=== PATIENT | male | born 1965 | race African-American/Black ===

== ENCOUNTER → 2019-11-07 | Outpatient (CLI) | payer OTHER ==
[2015-09-22 14:26] VITALS: BP 148/87
[~2019-11-07] MED LIST: ALPR1TAB6 PO; ATEN100T PO; CLON1TAB11 PO; FURO20TA3 PO; GABA800T5 PO; HYDR1POW19 MC; INSU100V13 SQ; INSU100V31 SQ; LOSA1TAB22 PO; LURA80TA PO; Loperamide Hcl PO; MAG30ORA2 PO; OMEP20CA16 PO; RISP2TAB PO
--- NOTE | 2019-11-07 12:20 | RAD ---
EXAMINATION: VENOUS LOWER EXTREMITY LEFT HISTORY: Left lower extremity pain and swelling. COMPARISON/CORRELATION: None FINDINGS: Left lower extremity duplex venous ultrasound exam was performed. Grayscale, color Doppler, and spectral Doppler imaging was performed. Compression and augmentation was performed. The left common femoral vein, superficial femoral vein, popliteal vein, and saphenofemoral junction are normal with no evidence of deep venous thrombus. Visualized left calf veins are unremarkable. Normal compressibility and augmentation is evident. Edema of the soft tissues at the left mid calf region posteriorly is present. IMPRESSION: Soft tissue edema at the left mid calf region. No evidence of deep venous thrombus involving the left lower extremity. Electronically signed by: Giovany Ovalle MD (11/07/2019 12:17 PM) [id number]
== END | disposition home or self-care (01) ==
LOC: US 11:41
PROVIDERS: ATTEND Family Medicine
DX: R60.0 Localized edema (principal); M79.89 Other specified soft tissue disorders
CPT/HCPCS: 93971

== ENCOUNTER 2020-05-26 13:35 | Emergency (ER) | payer OTHER ==
[~2020-05-26] VITALS: Ht 175.3 cm; Wt 136.0 kg
[2020-05-26 14:04] VITALS: BP 180/101
--- NOTE | 2020-05-26 14:19 | PHYS DOC ---
Past History Past Medical History: Anxiety, Asthma, COPD, Diabetes, GERD, Hypertension Past Surgical History: No Surgical History Smoking: Cigar Alcohol Use: None Drug Use: None Adult General Chief Complaint Chief Complaint: RECTAL BLEED HPI HPI Patient is a 54 year old male who presents with complaints of rectal pain that started approximately 1 week ago. Patient states that at onset he noticed pain when he wiped and also noticed some bright red blood on the toilet paper after he wiped but did not see any blood in his stool or in the stool. Patient states that it progressively became worse and then 4 days ago and started noticing blood in the stool along with blood clots. Patient states that he has some low abdominal pressure just prior to having his stools and has extreme rectal pain every time he has a bowel movement. Patient rates his pain at a 10/10 on a 1-10 pain scale. Patient denies rectal sex, patient denies anything going into his rectum. Patient reports having rectal polyps removed by Dr. MCKNIGHT at related to colon cancer. Patient denies being on any current cancer regimens, chemotherapies, radiation therapies. Patient states that he has a bowel movement every day however states that intermittently he has diarrhea and also intermittently he has very hard constipated type stools however he does not notice a pattern to this. Patient denies any fever or chills, any visual changes, nasal congestion cough or shortness of breath. Patient denies any chest pain or edema. Patient denies any problems urinating, patient denies any penile discharge, patient denies STI concerns. Patient denies back pain, joint pains, skin rashes, headaches focal weaknesses or sensory changes. Patient denies any increased urination or increased thirst even though he reports he is both a type I and a type II diabetic. Patient denies any swelling of his glands, any recent depressions or anxieties, patient denies homicidal or suicidal ideations. Patient denies having the Covid virus, patient denies any Covid 19 virus symptoms, patient does not wish to be tested today. Review of Systems Review of Systems Constitutional: Denies fever or chills Eyes: Denies change in visual acuity, redness, or eye pain HENT: Denies nasal congestion or sore throat Respiratory: Denies cough or shortness of breath Cardiovascular: No additional information not addressed in HPI GI: Denies nausea, vomiting, complains of rectal pain, diarrhea, constipation, blood in his stools, passing blood clots during bowel movements that started approximately 1 week ago and has progressively become worse. : Denies dysuria or hematuria Musculoskeletal: Denies back pain or joint pain Integument: Denies rash or skin lesions Neurologic: Denies headache, focal weakness or sensory changes Endocrine: Denies polyuria or polydipsia, reports being both a type I and a type II diabetic. Psychiatric: Patient denies homicidal or suicidal ideation, patient denies recent depressions or anxieties. All other systems were reviewed and found to be within normal limits, except as documented in this note. Family History Family History Patient states that there is diabetes and heart disease on both his mother and father side of the family. Current Medications Current Medications Patient reports taking atenolol 100 mg daily, hydrochlorothiazide 25 mg daily, insulin daily, omeprazole 20 mg daily, risperidone 2 mg daily, gabapentin 800 mg 3 times daily, Lasix 20 mg daily, Latuda 80 mg nightly, Ativan 1 mg as needed, clonazepam 1 mg every morning. Allergies Allergies Allergies Coded Allergies Type Severity Reaction Last Updated Verified egg Allergy Intermediate 09/21/14 Yes Physical Exam Physical Exam Constitutional: Well developed, well nourished, no acute distress, non-toxic appearance. HENT: Normocephalic, atraumatic, bilateral external ears normal, oropharynx moist, no oral exudates, nose normal. Eyes: PERRLA, EOMI, conjunctiva normal, no discharge. Neck: Normal range of motion, no tenderness, supple, no stridor. Cardiovascular:Heart rate regular rhythm, no murmur for auscultation Lungs & Thorax: Bilateral breath sounds clear to auscultation all lung [place] Abdomen: Bowel sounds normal all 4 quadrants auscultation, soft, no tenderness, no masses, no pulsatile masses. Visual rectal exam did not show any hemorrh oids, there was no visual blood, there were no lesions noted there was no rashes noted on or around rectum, rectal exam for occult blood did not show any visual blood on stool, occult blood test card was sent to lab. Patient stated rectal exam was extremely painful. Skin: Warm, dry, no erythema, no rash. Back: No tenderness, no CVA tenderness. Extremities: No tenderness, no cyanosis, no clubbing, ROM intact, no edema. Neurologic: Alert and oriented X 3, normal motor function, normal sensory function, no focal deficits noted. Psychologic: Affect normal, judgement normal, mood normal. Current Patient Data Vital Signs Vital Signs Date Time Temp Pulse Resp B/P (MAP) Pulse Ox O2 Delivery O2 Flow Rate FiO2 05/26/20 14:02 92 20 180/101 (127) 95 Room Air Lab Results Laboratory Tests Test 05/26/20 15:32 05/26/20 16:03 White Blood Count 7.2 x10^3/uL Red Blood Count 5.64 x10^6/uL Hemoglobin 14.7 g/dL Hematocrit 45.5 % Mean Corpuscular Volume 81 fL Mean Corpuscular Hemoglobin 26 pg Mean Corpuscular Hemoglobin Concent 32 g/dL Red Cell Distribution Width 13.9 % Platelet Count 217 x10^3/uL Neutrophils (%) (Auto) 72 % Lymphocytes (%) (Auto) 20 % Monocytes (%) (Auto) 7 % Eosinophils (%) (Auto) 1 % Basophils (%) (Auto) 0 % Neutrophils # (Auto) 5.1 x10^3uL Lymphocytes # (Auto) 1.4 x10^3/uL Monocytes # (Auto) 0.5 x10^3/uL Eosinophils # (Auto) 0.1 x10^3/uL Basophils # (Auto) 0.0 x10^3/uL Sodium Level 137 mmol/L Potassium Level 4.2 mmol/L Chloride Level 97 mmol/L Carbon Dioxide Level 33 mmol/L Anion Gap 7 Blood Urea Nitrogen 27 mg/dL Creatinine 1.4 mg/dL Estimated GFR (Cockcroft-Gault) 63.7 BUN/Creatinine Ratio 19 Glucose Level 336 mg/dL Calcium Level 9.8 mg/dL Magnesium Level 2.3 mg/dL Total Bilirubin 0.2 mg/dL Aspartate Amino Transf (AST/SGOT) 18 U/L Alanine Aminotransferase (ALT/SGPT) 34 U/L Alkaline Phosphatase 57 U/L Troponin I Quantitative < 0.017 ng/mL Total Protein 7.2 g/dL Albumin 3.7 g/dL Albumin/Globulin Ratio 1.1 Stool Occult Blood Positive Current Medications Medications (Trade) Dose Ordered Sig/Chago Route PRN Reason Start Time Stop Time Status Last Admin Dose Admin Iohexol (Omnipaque 300 Mg/ml) 75 ml 1X ONCE IV 05/26/20 14:45 05/26/20 14:50 DC Fentanyl Citrate (Fentanyl 2ml Vial) 50 mcg 1X ONCE IVP 05/26/20 16:15 05/26/20 16:16 DC 05/26/20 16:33 Laboratory Tests Test 05/26/20 15:32 05/26/20 16:03 White Blood Count 7.2 x10^3/uL Red Blood Count 5.64 x10^6/uL Hemoglobin 14.7 g/dL Hematocrit 45.5 % Mean Corpuscular Volume 81 fL Mean Corpuscular Hemoglobin 26 pg Mean Corpuscular Hemoglobin Concent 32 g/dL Red Cell Distribution Width 13.9 % Platelet Count 217 x10^3/uL Neutrophils (%) (Auto) 72 % Lymphocytes (%) (Auto) 20 % Monocytes (%) (Auto) 7 % Eosinophils (%) (Auto) 1 % Basophils (%) (Auto) 0 % Neutrophils # (Auto) 5.1 x10^3uL Lymphocytes # (Auto) 1.4 x10^3/uL Monocytes # (Auto) 0.5 x10^3/uL Eosinophils # (Auto) 0.1 x10^3/uL Basophils # (Auto) 0.0 x10^3/uL Sodium Level 137 mmol/L Potassium Level 4.2 mmol/L Chloride Level 97 mmol/L Carbon Dioxide Level 33 mmol/L Anion Gap 7 Blood Urea Nitrogen 27 mg/dL Creatinine 1.4 mg/dL Estimated GFR (Cockcroft-Gault) 63.7 BUN/Creatinine Ratio 19 Glucose Level 336 mg/dL Calcium Level 9.8 mg/dL Magnesium Level 2.3 mg/dL Total Bilirubin 0.2 mg/dL Aspartate Amino Transf (AST/SGOT) 18 U/L Alanine Aminotransferase (ALT/SGPT) 34 U/L Alkaline Phosphatase 57 U/L Troponin I Quantitative < 0.017 ng/mL Total Protein 7.2 g/dL Albumin 3.7 g/dL Albumin/Globulin Ratio 1.1 Stool Occult Blood Positive Current Medications Medications (Trade) Dose Ordered Sig/Chago Route PRN Reason Start Time Stop Time Status Last Admin Dose Admin Iohexol (Omnipaque 300 Mg/ml) 75 ml 1X ONCE IV 05/26/20 14:45 05/26/20 14:50 DC Fentanyl Citrate (Fentanyl 2ml Vial) 50 mcg 1X ONCE IVP 05/26/20 16:15 11/8/20 16:16 DC 05/26/20 16:33 EKG EKG EKG performed at 1451 by ED nursing staff showed a heart rate of 92 bpm normal sinus rhythm without ectopy, [place] interval 0.148, QTc interval 0.455, no acute STEMI, no coronary syndrome appreciated EKG interpreted by ED attending Dr. Marquez. Radiology/Procedures Radiology/Procedures [] Heart Score Risk Factors: Risk Factors: DM, Current or recent (<one month) smoker, HTN, HLP, family history of CAD, obesity. Risk Scores: Risk Factors: DM, Current or recent (<one month) smoker, HTN, HLP, family history of CAD, obesity. Course & Med Decision Making Course & Med Decision Making Pertinent Labs and Imaging studies reviewed. (See chart for details) This 54-year-old male patient with vital signs blood pressure 184/101, heart rate 92, O2 sat 95% on room air, oral temp 98.2, respirations 18, seen here in the ER today for rectal pain and rectal bleeding with blood in the stool. Patient reported a history of cardiac stents 2 years ago, also reports a history of COPD, rectal polyps with cancer that was removed per surgery greater than 20 years ago, a left knee surgery approximately 10 years ago, and a double back surgery approximately 10 years ago, also reports a history of being a type I and a type II diabetic. Related to the patient's history of present illness and the patient's past medical history a work-up was started, lab work was essentially unremarkable except for his stool for occult blood was positive, he was not anemic, there was no infectious process noted per CBC. His electrolytes were equivocal. When the triage technician arrived to take him for his abdominal CAT scan further evaluate the patient's complaints of bloody stool, the patient elected to leave the emergency department AGAINST MEDICAL ADVICE. I discussed the risk versus benefits of leaving AGAINST MEDICAL ADVICE. Urged the patient to stay and have his medical examination completed. It is of my opinion that the patient is of sound mind and body, alert and oriented x4, and is able to make his own informed medical decisions. The patient's IV was removed by ED nursing staff, patient discharge instructions including AMA form was reviewed with patient by me and ED nursing staff, patient elected to leave the emergency department after receiving verbal instructions, the patient continued to refuse completion of his medical exam, the patient refused his CT scan of the abdomen, the CT scan of the abdomen was not performed today, patient left the ED without incident AGAINST MEDICAL ADVICE. Dragon Disclaimer Dragon Disclaimer This electronic medical record was generated, in whole or in part, using a voice recognition dictation system. Departure Departure: Impression: Primary Impression: Left against medical advice Additional Impression: Rectal pain Disposition: 07 AMA/ELOPED/LWBS Condition: STABLE Referrals: ZULMA KATZ MD (PCP) Patient Instructions: Discharge Against Medical Advice Additional Instructions: You came to the emergency department today for evaluation of your rectal pain and rectal bleeding. You have decided to leave the emergency department prior to my completion of your medical evaluation. You are leaving AGAINST MEDICAL ADVICE. Please return to the emergency department for worsening symptoms or further concerns. Problem Qualifiers DANE MARCIAL APRN May 26, 2020 14:19
[2020-05-26] MEDS ORDERED: IOHEXOL 300 MG/ML 75 ML VIAL. IV ONE (14:45)
--- NOTE | 2020-05-26 14:57 | EKG ---
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
[2020-05-26 16:19] LABS: BASO % 0 % (0-3); EOS # 0.1 x10^3/uL (0.0-0.7); EOS % 1 % (0-3); HEMATOCRIT 45.5 % (39.0-53.0); HEMOGLOBIN 14.7 g/dL (13.0-17.5); LYMPH # 1.4 x10^3/uL (1.0-4.8); LYMPH % 20 % (24-48); MEAN CORPUSCULAR HEMOGLOBIN 26 pg (25-35); MEAN CORPUSCULAR HGB CONC 32 g/dL (31-37); MEAN CORPUSCULAR VOLUME 81 fL (79-100); MONO # 0.5 x10^3/uL (0.0-1.1); MONO % 7 % (0-9); NEUT # 5.1 x10^3uL (1.8-7.7); NEUT % 72 % (31-73); PLATELET COUNT 217 x10^3/uL (140-400); RED BLOOD COUNT 5.64 x10^6/uL (4.30-5.70); RED CELL DISTRIBUTION WIDTH 13.9 % (11.5-14.5); WHITE BLOOD COUNT 7.2 x10^3/uL (4.0-11.0)
[2020-05-26 16:20] LABS: CALCIUM 9.8 mg/dL (8.5-10.1); CREATININE 1.4 mg/dL (0.7-1.3); GFR 63.7; POTASSIUM 4.2 mmol/L (3.5-5.1)
[2020-05-26 16:26] LABS: ALBUMIN 3.7 g/dL (3.4-5.0); ALBUMIN/GLOBULIN RATIO 1.1 (1.0-1.7); TOTAL BILIRUBIN 0.2 mg/dL (0.2-1.0); TOTAL PROTEIN 7.2 g/dL (6.4-8.2)
[2020-05-26 16:32] LABS: FECAL OB PT POSITIVE (NEG)
== END 2020-05-26 16:40 | disposition left against medical advice (07) ==
LOC: ER 13:35
DX: K62.89 Other specified diseases of anus and rectum (principal); K92.1 Melena; R19.7 Diarrhea, unspecified; K59.00 Constipation, unspecified; F41.9 Anxiety disorder, unspecified; J44.9 Chronic obstructive pulmonary disease, unspecified; E11.9 Type 2 diabetes mellitus without complications; K21.9 Gastro-esophageal reflux disease without esophagitis; I10 Essential (primary) hypertension; F17.210 Nicotine dependence, cigarettes, uncomplicated; Z91.012 Allergy to eggs
CPT/HCPCS: 36415; 80053; 82274; 83735; 84484; 85025; 93005; 96374; 99284; J3010

== ENCOUNTER 2020-10-08 17:20 | Observation (INO) | payer OTHER ==
[~2020-10-08] VITALS: Ht 177.8 cm; Wt 143.9 kg
[2020-10-08] MEDS ORDERED: IV NORMAL SALINE 1,000ML 1,000 ML IV SCH (17:30)
[2020-10-08] MEDS ORDERED: ASPIRIN CHEWABLE 81 MG TABLET. PO ONE (17:30)
--- NOTE | 2020-10-08 17:54 | RAD ---
INDICATION: Reason: CHEST PAIN / Spl. Instructions: / History: COMPARISON: September 2014 FINDINGS: Single view of chest obtained. Hypoexpanded exam with prominence of the cardiac silhouette. Limited assessment of left lung base sec ondary to overlying cardiac silhouette obscuring but no definite consolidation elsewhere in the lungs . Degenerative changes the spine. IMPRESSION: * Hypoexpanded exam without definite focal consolidation. Electronically signed by: Oumar Saini MD (10/08/2020 5:52 PM) [id number]
--- NOTE | 2020-10-08 17:59 | PHYS DOC ---
Past History Past Medical History: Anxiety, Asthma, COPD, Diabetes, GERD, High Cholesterol, Heart Disease, Hypertension (BENY ELENA MD) Past Surgical History: No Surgical History Additional Past Surgical Histo: 2 stents (BENY ELENA MD) Smoking: Cigar Alcohol Use: None Drug Use: None (BENY ELENA MD) Adult General Chief Complaint Chief Complaint: CHEST PAIN [facility] HPI Patient is a 54-year-old male with a significant past medical history including prior MIs and hospitalization for "coma" 10 months ago now presents emergency department complaint of new onset of chest pain. Patient states his chest pain started of substernal anterior chest pain that started spontaneously approxi-1 week ago and has been some increase in severity. Patient came today because it has been having any worse. Patient has not been taking any medication for this problem. Denies any fever, chills, nausea vomiting, dizziness or lightheadedness. (BENY ELENA MD) Review of Systems Review of Systems Constitutional: Denies fever or chills [] Eyes: Denies change in visual acuity, redness, or eye pain [] HENT: Denies nasal congestion or sore throat [] Respiratory: Denies cough or shortness of breath [] Cardiovascular: No additional information not addressed in HPI [] GI: Denies abdominal pain, nausea, vomiting, bloody stools or diarrhea [] : Denies dysuria or hematuria [] Musculoskeletal: Denies back pain or joint pain [] Integument: Denies rash or skin lesions [] Neurologic: Denies headache, focal weakness or sensory changes [] Endocrine: Denies polyuria or polydipsia [] All other systems were reviewed and found to be within normal limits, except as documented in this note. (BENY ELENA MD) Current Medications Current Medications Current Medications Medications (Trade) Dose Ordered Sig/Chago Start Time Stop Time Status Last Admin Dose Admin Aspirin (Aspirin Chewable) 324 mg 1X ONCE 10/08/20 17:30 10/08/20 17:36 DC Sodium Chloride 1,000 ml @ 1,000 mls/hr Q1H 10/08/20 17:30 10/08/20 18:29 (BENY ELENA MD) Allergies Allergies Allergies Coded Allergies Type Severity Reaction Last Updated Verified egg Allergy Intermediate 09/21/14 Yes (BENY ELENA MD) Physical Exam Physical Exam Constitutional: Well developed, well nourished, no acute distress, non-toxic appearance. [] HENT: Normocephalic, atraumatic, bilateral external ears normal, oropharynx moist, no oral exudates, nose normal. [] Eyes: PERRLA, EOMI, conjunctiva normal, no discharge. [] Neck: Normal range of motion, no tenderness, supple, no stridor. [] Cardiovascular:Heart rate regular rhythm, no murmur [] Lungs & Thorax: Bilateral breath sounds clear to auscultation left anterior chest wall tenderness Abdomen: Bowel sounds normal, soft, no tenderness, no masses, no pulsatile masses. [] Skin: Warm, dry, no erythema, no rash. [] Back: No tenderness, no CVA tenderness. [] Extremities: No tenderness, no cyanosis, no clubbing, ROM intact, no edema. [] Neurologic: Alert and oriented X 3, normal motor function, normal sensory function, no focal deficits noted. [] Psychologic: Affect normal, judgement normal, mood normal. [] (BENY ELENA MD) Current Patient Data Vital Signs Vital Signs Date Time Temp Pulse Resp B/P (MAP) Pulse Ox O2 Delivery O2 Flow Rate FiO2 10/08/20 17:30 98.4 97 26 161/93 (115) 94 (BENY ELENA MD) EKG EKG [] (BENY ELENA MD) Radiology/Procedures Radiology/Procedures [] (BENY ELENA MD) Heart Score C/O Chest Pain: No Risk Factors: Risk Factors: DM, Current or recent (<one month) smoker, HTN, HLP, family history of CAD, obesity. Risk Scores: Risk Factors: DM, Current or recent (<one month) smoker, HTN, HLP, family history of CAD, obesity. (BENY ELENA MD) Course & Med Decision Making Course & Med Decision Making Pertinent Labs and Imaging studies reviewed. (See chart for details) [age] male presented to emergency for new onset of left anterior chest pain dyspnea on for about 1 week. Patient is high risk patient has a history of MIs and there is some concern for drug-seeking behavior and overdose in the past. This time will obtain a full ACS work-up and reevaluate. 17:58 - patient care assigned to Dr. Segundo (BENY ELENA MD) Course & Med Decision Making I assumed care of patient after comprehensive signout by off going physician I personally evaluated patient and repeated certain aspects of history and physical exam. I reviewed entirety of previously ordered diagnostic work-up at length. Patient has had 60 pound weight gain in the past 2 months. Worse paroxysmal dyspnea, exertional chest pain, and LE edema I discussed and disclosed all findings at length with patient, patient hyperglycemic and is a known uncontrolled type II diabetic. Story concerning for acute exacerbation of heart failure and a high risk patient complaining of chest pain. I contacted Dr. Luz, hospitalist at [facility] and discussed case at length. He agreed need for admission for continued diuresis, cardiac observation and intervention/education regarding patient's uncontrolled diabetes I discussed proposed plan of care with patient and he was amenable to plan of care that included admission to hospital as stated. All questions and concerns addressed prior to ER transport to [facility] for admission (LUCÍA SEGUNDO DO) Dragon Disclaimer Dragon Disclaimer This electronic medical record was generated, in whole or in part, using a voice recognition dictation system. (BENY LEENA MD) Departure Departure: Impression: Primary Impression: Acute exacerbation of CHF (congestive heart failure) Additional Impressions: Chest pain, rule out acute myocardial infarction Type 2 diabetes mellitus, uncontrolled Disposition: 09 ADMITTED INPT THIS HOSP Admitting Physician: Roman Luz (LUCÍA SEGUNDO DO) Condition: STABLE Referrals: ZULMA KATZ MD (PCP) Problem Qualifiers BENY ELENA MD Oct 08, 2020 17:59 LUCÍA SEGUNDO DO Oct 09, 2020 05:01
[2020-10-08 18:09] LABS: BASO % 1 % (0-3); CALCIUM 9.2 mg/dL (8.5-10.1); CREATININE 1.7 mg/dL (0.7-1.3); EOS # 0.1 x10^3/uL (0.0-0.7); EOS % 2 % (0-3); GFR 50.9; HEMATOCRIT 46.3 % (39.0-53.0); HEMOGLOBIN 15.1 g/dL (13.0-17.5); LYMPH # 1.3 x10^3/uL (1.0-4.8); LYMPH % 18 % (24-48); MEAN CORPUSCULAR HEMOGLOBIN 26 pg (25-35); MEAN CORPUSCULAR HGB CONC 33 g/dL (31-37); MEAN CORPUSCULAR VOLUME 80 fL (79-100); MONO # 0.5 x10^3/uL (0.0-1.1); MONO % 7 % (0-9); NEUT # 5.3 x10^3uL (1.8-7.7); NEUT % 72 % (31-73); PLATELET COUNT 218 x10^3/uL (140-400); POTASSIUM 4.3 mmol/L (3.5-5.1); RED BLOOD COUNT 5.78 x10^6/uL (4.30-5.70); RED CELL DISTRIBUTION WIDTH 14.8 % (11.5-14.5); WHITE BLOOD COUNT 7.3 x10^3/uL (4.0-11.0)
[2020-10-08] MEDS ORDERED: FUROSEMIDE 100 MG/10 ML VIAL IVP ONE (18:15)
[2020-10-08 18:21] LABS: ALBUMIN 3.7 g/dL (3.4-5.0); TOTAL BILIRUBIN 0.2 mg/dL (0.2-1.0); TOTAL PROTEIN 7.2 g/dL (6.4-8.2)
[2020-10-08 18:23] LABS: DIRECT BILIRUBIN 0.1 mg/dL (0.0-0.2)
[2020-10-08] MEDS ORDERED: MORPHINE SULFATE 4 MG/ML DISP.SYRIN. ONE (18:25)
[2020-10-08] MEDS ORDERED: MORPHINE SULFATE 4 MG/ML DISP.SYRIN. IV ONE (18:30)
[2020-10-08] MEDS ORDERED: ALBUTEROL SULFATE 2.5 MG/3 ML NEBU. NEB ONE (19:45)
[2020-10-08 21:14] VITALS: BP 139/90
[2020-10-08] MEDS ORDERED: ATORVASTATIN CA80 MG PO (21:43)
[2020-10-08] MEDS ORDERED: FLUT1AER IH (21:43)
[2020-10-08] MEDS ORDERED: FURO80TA3 PO (21:43)
[2020-10-08] MEDS ORDERED: LOSA50TA86 PO (21:43)
[2020-10-08] MEDS ORDERED: OLAN5TAB9 PO (21:43)
[2020-10-08] MEDS ORDERED: VENL75CA6 PO (21:43)
[2020-10-08] MEDS ORDERED: POTA20TA4 PO (21:43)
[2020-10-08] MEDS ORDERED: CLOP75TA PO (21:43)
[2020-10-08] MEDS ORDERED: HYDR-2155 PO (21:43)
[2020-10-08] MEDS ORDERED: FLUT16SP21 NS (21:43)
[2020-10-08 23:03] VITALS: BP 134/85
[2020-10-09] MEDS ORDERED: ACETAMINOPHEN 325 MG TABLET PO ONE (05:30)
[2020-10-09 05:47] VITALS: BP 156/92
[2020-10-09] MEDS ORDERED: HYDROcodone/APAP 5/325MG 1 TAB TABLET PO PRN (07:30)
[2020-10-09] MEDS ORDERED: ALPRAZolam 0.5 MG TABLET PO PRN (07:45)
--- NOTE | 2020-10-09 08:34 | PDOC2 ---
CARDIAC CONSULT DATE OF CONSULT DOS: DATE: 10/09/20 TIME: 08:30 REASON FOR CONSULT Reason for Consult Chest pain REFERRING PHYSICIAN Referring Physician Dr. Desir SOURCE Source: Chart review, Patient HPI History of Present Illness This is a 54 yo male who presented secondary to chest pain. Patient reports pain has been present for the last week. Located in his central chest. Is worse with certain movements, coughing, and deep breathing. Central chest is also tender upon palpitation. Over the last couple of days, patient has been more short of breath with exertion. Has had to stop and take a breath with his routine morning walks. No dizziness, diaphoresis, palpitations, or nausea/vomiting. Given shortness of breath and chest pain, patient decided to come to the ED for further evaluation and treatment. Has a history of CAD s/p PCI/stents 3 years ago. Follow with [facility]iology, Dr. Daniels. Was scheduled for routine 1 year visit today. Reports experiencing similar pain last year and Dr. Daniels felt pain was MSK in origin. Had cardiac cath last year without intervention. Reports compliance with medications. Reports blood sugar is "always elevated". S/p IV Lasix in ED and reports feeling much better this morning. PAST MEDICAL HISTORY Cardiovascular: CAD, CHF, HTN Pulmonary: COPD, Other (TERESA) Heme/Onc: Cancer (colorectal ) Psych: Anxiety, Bipolar, Depression Endocrine: Diabetes PAST SURGICAL HISTORY Past Surgical History: Other (back surgery, PCI/stents ) FAMILY HISTORY Family History: Diabetes, Hypertension SOCIAL HISTORY Smoke: Quit (smoke cigars ) ALCOHOL: none Drugs: None Lives: Alone CURRENT MEDICATIONS Current Medications Current Medications Aspirin (Aspirin Chewable) 324 mg 1X ONCE PO Last administered on 10/08/20at 18:06; Start 10/08/20 at 17:30; Stop 10/08/20 at 17:36; Status DC Sodium Chloride 1,000 ml @ 1,000 mls/hr Q1H IV ; Start 10/08/20 at 17:30; Stop 10/08/20 at 18:10; Status DC Furosemide (Lasix) 80 mg 1X ONCE IVP Last administered on 10/08/20at 18:32; Start 10/08/20 at 18:15; Stop 10/08/20 at 18:16; Status DC Morphine Sulfate (Morphine 4mg Syringe) 4 mg 1X ONCE IV Last administered on 10/08/20at 18:30; Start 10/08/20 at 18:30; Stop 10/08/20 at 18:31; Status DC Morphine Sulfate (Morphine 4mg Syringe) 4 mg STK-MED ONCE .ROUTE ; Start 10/08/20 at 18:25; Stop 10/08/20 at 18:26; Status DC Albuterol Sulfate (Ventolin) 2.5 mg 1X ONCE NEB Last administered on 10/08/20at 19:45; Start 10/08/20 at 19:45; Stop 10/08/20 at 19:51; Status DC Acetaminophen (Tylenol) 650 mg PRN Q6HRS ONCE PO Last administered on 10/09/20at 05:30; Start 10/09/20 at 05:30; Stop 10/09/20 at 05:46; Status DC Clopidogrel Bisulfate (Plavix) 75 mg DAILY PO ; Start 10/09/20 at 09:00 Fluticasone Propionate (Flonase) 2 spray BID NS ; Start 10/09/20 at 09:00 Furosemide (Lasix) 80 mg DAILY PO ; Start 10/09/20 at 09:00 Acetaminophen/ Hydrocodone Bitart (Lortab 5/325) 1 tab PRN BID PRN PO PAIN; Start 10/09/20 at 07:30 Losartan Potassium (Cozaar) 100 mg DAILY PO ; Start 10/09/20 at 09:00 Olanzapine (ZyPREXA) 15 mg QHS PO ; Start 10/09/20 at 21:00 Potassium Chloride (Klor-Con) 60 meq DAILY PO ; Start 10/09/20 at 09:00 Alprazolam (Xanax) 1 mg PRN TID PRN PO ANXIETY / AGITATION; Start 10/09/20 at 07:45 Atorvastatin Calcium (Lipitor) 80 mg QHS PO ; Start 10/09/20 at 21:00 Non-Formulary Medication (Fluticasone/ Vilanterol (Breo Ellipta 100-25 Mcg Inh)) 1 puff DAILY IH ; Start 10/09/20 at 09:00; Stop 10/09/20 at 08:11; Status DC Gabapentin (Neurontin) 800 mg BID PO ; Start 10/09/20 at 09:00 Insulin Human Lispro (HumaLOG) 63 units TIDAC SQ ; Start 10/09/20 at 11:30 Insulin Glargine (Lantus Syringe) 90 unit BID SQ ; Start 10/09/20 at 09:00 Pantoprazole Sodium (Protonix) 40 mg DAILYAC PO ; Start 10/10/20 at 08:00 Venlafaxine HCl (Effexor Xr) 75 mg DAILY PO ; Start 10/09/20 at 09:00 Albuterol Sulfate (Ventolin) 2.5 mg RTQID NEB ; Start 10/09/20 at 12:00 Budesonide (Pulmicort) 0.5 mg RTBID NEB ; Start 10/09/20 at 20:00 Active Scripts Active Reported Olanzapine 5 Mg Tablet 15 Mg PO QHS Venlafaxine Hcl Er (Venlafaxine Hcl) 75 Mg Cap.er.24h 75 Mg PO DAILY Hydrocodone-Apap 5-325 (Hydrocodone Bit/Acetaminophen) 1 Each Tablet 1 Tab PO PRN BID PRN Fluticasone Propionate Nasal [place] (Fluticasone Propionate) 16 Gm [place].susp 2 [place] NS BID Clopidogrel (Clopidogrel Bisulfate) 75 Mg Tablet 75 Mg PO DAILY Atorvastatin Calcium 80 Mg Tablet 80 Mg PO QHS Breo Ellipta 100-25 Mcg Inh (Fluticasone/Vilanterol) 1 Each Aer.pow.ba 1 Puff IH DAILY Losartan Potassium (Losartan Potassium) 50 Mg Tablet 100 Mg PO DAILY Potassium Chloride (Potassium Chloride) 20 Meq Tablet.er 60 Meq PO DAILY Furosemide 80 Mg Tablet 80 Mg PO DAILY Alprazolam 1 Mg Tablet 1 Mg PO PRN TID PRN Gabapentin 800 Mg Tablet 800 Mg PO BID Omeprazole 20 Mg Capsule.dr 20 Mg PO DAILY Levemir (Insulin Detemir) 100 Unit/1 Ml Vial 90 Unit SQ BIDWMEALS Novolog (Insulin Aspart) 100 Unit/1 Ml Vial 63 Unit SQ TIDAC ALLERGIES Allergies: Coded Allergies: egg (Verified Allergy, Intermediate, 09/21/14) ROS Review of Systems 14 point ROS conducted with pertinent positives noted above in hPI PHYSICAL EXAM General: Alert, Oriented X3, Cooperative, No acute distress HEENT: Atraumatic Lungs: Clear to auscultation, Other (central chest tenderness upon palpation ) Heart: Regular rate Abdomen: Soft, Other (obese ) Skin: No rashes, No breakdown, No significant lesion (trace bilateral LE edema ) Neuro: Normal speech, Sensation intact Psych/Mental Status: Mental status NL, Mood NL MUSCULOSKELETAL: Osteoarthritic changes both hands VITALS Vital Signs Vital Signs Date Time Temp Pulse Resp B/P (MAP) Pulse Ox O2 Delivery O2 Flow Rate FiO2 10/09/20 05:47 98.2 91 20 156/92 (113) 92 Nasal Cannula 2.0 LABS LABS Laboratory Tests Test 10/08/20 17:30 10/08/20 20:35 10/08/20 22:38 10/08/20 23:40 White Blood Count 7.3 x10^3/uL (4.0-11.0) Red Blood Count 5.78 x10^6/uL (4.30-5.70) Hemoglobin 15.1 g/dL (13.0-17.5) Hematocrit 46.3 % (39.0-53.0) Mean Corpuscular Volume 80 fL (79-100) Mean Corpuscular Hemoglobin 26 pg (25-35) Mean Corpuscular Hemoglobin Concent 33 g/dL (31-37) Red Cell Distribution Width 14.8 % (11.5-14.5) Platelet Count 218 x10^3/uL (140-400) Neutrophils (%) (Auto) 72 % (31-73) Lymphocytes (%) (Auto) 18 % (24-48) Monocytes (%) (Auto) 7 % (0-9) Eosinophils (%) (Auto) 2 % (0-3) Basophils (%) (Auto) 1 % (0-3) Neutrophils # (Auto) 5.3 x10^3uL (1.8-7.7) Lymphocytes # (Auto) 1.3 x10^3/uL (1.0-4.8) Monocytes # (Auto) 0.5 x10^3/uL (0.0-1.1) Eosinophils # (Auto) 0.1 x10^3/uL (0.0-0.7) Basophils # (Auto) 0.0 x10^3/uL (0.0-0.2) Sodium Level 138 mmol/L (136-145) Potassium Level 4.3 mmol/L (3.5-5.1) Chloride Level 99 mmol/L (98-107) Carbon Dioxide Level 33 mmol/L (21-32) Anion Gap 6 (6-14) Blood Urea Nitrogen 27 mg/dL (8-26) Creatinine 1.7 mg/dL (0.7-1.3) Estimated GFR (Cockcroft-Gault) 50.9 Glucose Level 332 mg/dL (70-99) Calcium Level 9.2 mg/dL (8.5-10.1) Magnesium Level 2.0 mg/dL (1.8-2.4) Total Bilirubin 0.2 mg/dL (0.2-1.0) Direct Bilirubin 0.1 mg/dL (0.0-0.2) Aspartate Amino Transf (AST/SGOT) 20 U/L (15-37) Alanine Aminotransferase (ALT/SGPT) 40 U/L (16-63) Alkaline Phosphatase 74 U/L (46-116) Creatine Kinase 506 U/L (39-308) Troponin I Quantitative < 0.017 ng/mL (0-0.055) < 0.017 ng/mL (0-0.055) < 0.017 ng/mL (0-0.055) SM-Qkv-N-Type Natriuretic Peptide 176 pg/mL (0-124) Total Protein 7.2 g/dL (6.4-8.2) Albumin 3.7 g/dL (3.4-5.0) Lipase 130 U/L (73-393) Glucose (Fingerstick) 188 mg/dL (70-99) Test 10/09/20 05:04 10/09/20 07:24 Glucose (Fingerstick) 267 mg/dL (70-99) 289 mg/dL (70-99) ASSESSMENT/PLAN Assessment/Plan 1. Chest pain, atypical; AMI ruled out. Most probably MSK in origin 2. CAD s/p PCI/stent 3 years ago. [facility] last year without intervention. Follow with [facility]iology, Dr. Daniels 3. Acute on chronic probable diastolic CHF; s/p IV diuresis 4. Accelerated hypertension; now controlled 5. Hyperlipidemia; statin 6. Diabetes, II 7. LNIG on probable CKD 8. Anxiety, depression, bipolar 9. TERESA; untreated Recommendations Continue secondary prevention measures. Resume home antiHTN therapy Lipids Discussed 2Gm Na diet, 2000cc FR Outpatient echo and ischemic evaluation Follow up with primary oil inspector upon discharge KATIE CLARKE APRN Oct 09, 2020 08:34
[2020-10-09] MEDS: VENLAFAXINE XR 37.5 MG CAP.ER.24H. PO SCH ×2 (08:51→09:00)
[2020-10-09] MEDS ORDERED: NON FORMULARY ITEM (Fluticasone/Vilanterol (Breo Ellipta 100-25 Mcg Inh) 1 PUFF) IH SCH (09:00)
[2020-10-09] MEDS ORDERED: INSULIN GLARGINE SYRINGE. SQ SCH (09:00)
[2020-10-09] MEDS ORDERED: POTASSIUM CHLORIDE 20 MEQ TABLET.ER. PO SCH (09:00)
[2020-10-09] MEDS ORDERED: GABAPENTIN 400 MG CAPSULE. PO SCH (09:00)
[2020-10-09] MEDS ORDERED: LOSARTAN 50 MG TABLET. PO SCH (09:00)
[2020-10-09] MEDS ORDERED: FLUTICASONE 50MCG/NASAL SPRAY 16GM BOTTLE. NS SCH (09:00)
[2020-10-09] MEDS ORDERED: CLOPIDOGREL BISULFATE 75 MG TABLET PO SCH (09:00)
[2020-10-09] MEDS ORDERED: FUROSEMIDE 80 MG TABLET PO SCH (09:00)
[2020-10-09] MEDS ORDERED: ALBUTEROL SULFATE 2.5 MG/3 ML NEBU. ONE (09:29)
[2020-10-09] MEDS ORDERED: BUDESONIDE 0.5 MG/2 ML NEBU ONE (09:29)
[2020-10-09 10:25] VITALS: BP 153/83
[2020-10-09] MEDS ORDERED: INSULIN LISPRO 300 UNITS/3 ML VIAL. SQ SCH (11:30)
[2020-10-09] MEDS ORDERED: ALBUTEROL SULFATE 2.5 MG/3 ML NEBU. NEB SCH (12:00)
--- NOTE | 2020-10-09 13:11 | HP ---
ADMIT DATE: 10/08/2020 HISTORY OF PRESENT ILLNESS: The patient is a 54-year-old -[place] male patient who came to the Emergency Room complaining of chest pain. He reported the pain has been present for the last week located in his central chest, worse with certain movement, coughing and deep breathing, central chest is also tender upon palpation. Over the last couple of days, the patient has been more short of breath with exertion, has had to stop to take a breath and his routine morning walks. No dizziness, diaphoresis, palpitation, nausea or vomiting. Given shortness of breath and chest pain, he decided to come to the Emergency Department for further evaluation and treatment. The patient is known to have a history of coronary artery disease, status post PCI and stent deployment 3 years ago. He follows with Dr. Daniels at [facility] Cardiology team who has scheduled for routine 1-year visit. He reports experiencing similar pain last year and Dr. Daniels felt pain was musculoskeletal in origin, had cardiac catheterization last year without intervention, report compliance with medications. He has received IV Lasix and is feeling much better after he arrived. He was evaluated in the Emergency Room, has had an EKG and a chest x-ray. His EKG showed that he was in sinus rhythm. First set of cardiac enzyme was less than 0.017 and the patient was admitted to do 2 more sets of cardiac enzyme and consult the Cardiology team. PAST MEDICAL HISTORY: Significant for coronary artery disease, congestive heart failure, hypertension, chronic obstructive pulmonary disease. He has also morbid obesity and obstructive sleep apnea, colorectal cancer, anxiety, bipolar, depression, type 2 diabetes. PAST SURGICAL HISTORY: Significant for back surgery, PCI and stent deployment. FAMILY HISTORY: Positive for diabetes and hypertension. SOCIAL HISTORY: He quit smoking cigars. He does not drink alcohol, does not use any drugs. He lives alone. ALLERGIES: HE IS ALLERGIC TO EGGS. MEDICATIONS: He is currently on following medications: He is on Plavix 75 mg once a day, atorvastatin calcium 80 mg at bedtime, losartan potassium 50 mg once a day, hydrocodone/APAP 5/325 one tablet twice a day, gabapentin 800 mg twice a day, venlafaxine 75 mg once a day, olanzapine 15 mg at bedtime, alprazolam 1 mg 3 times a day, potassium chloride 20 mEq 3 times a day, furosemide 80 mg once a day, Breo Ellipta 1 puff once a day, Flonase 2 sprays to each nostril twice a day, omeprazole 20 mg daily. He is on NovoLog insulin 60 units subcutaneous 3 times a day before meals and insulin detemir for Levemir 90 units subcutaneously twice a day with meals. REVIEW OF SYSTEMS: As per history of present illness. PHYSICAL EXAMINATION: GENERAL: On arrival to the Emergency Room, the patient looked well and was clearly in no apparent respiratory distress. There is no pallor, jaundice, cyanosis or thyromegaly. No jugular venous distension. No lower limb edema. VITAL SIGNS: His heart rate was 97, blood pressure was 161/93, temperature was 98.4, respiratory rate was 26 and oxygen saturation was 94%. HEAD, EYES, EARS, NOSE AND THROAT: Showed normocephalic, atraumatic. NECK: Supple. HEART: Showed normal first and second heart sounds. No gallop or murmur. CHEST: Clear to auscultation. No crepitation or rhonchi. ABDOMEN: Distended, soft, nontender. NEUROLOGIC: He was awake, alert, responding appropriately. All cranial nerves intact. EXTREMITIES: He moves extremities without difficulty. LABORATORY DATA: His lab work on admission showed a white cell count 7300, hemoglobin 15, hematocrit 46, MCV 80, platelet count 218,000. His serum sodium was 138, potassium 4.3, chloride 99, bicarbonate 33, anion gap of 6, BUN 27, creatinine 1.7, estimated GFR was 50 mL per minute. His glucose was 332, calcium was 9.2, magnesium 2. Total bilirubin, AST, ALT were normal. CK was 506, beta natriuretic peptide was 176. Total protein was 7.2, albumin was 3.7 and lipase was 130. His chest x-ray showed hyperexpanded exam without definite focal consolidation, is prominence with the cardiac silhouette. ASSESSMENT AND PLAN: The patient was admitted with what seemed to be atypical chest pain. We will do 2 more sets of cardiac enzyme, consult the Cardiology team and decide on further management accordingly. MAN DUNN MD DR: LISANDRA/kemi JOB#: [id number] / [id number]
[2020-10-09 13:23] LABS: CREATININE 1.3 mg/dL (0.7-1.3); GFR 69.3; POTASSIUM 4.3 mmol/L (3.5-5.1)
--- NOTE | 2020-10-09 13:44 | DS ---
DATE OF DISCHARGE: 10/09/2020 HOSPITAL COURSE: The patient is a 54-year-old -[place] male patient who was admitted with chest pain that is atypical. He has had 3 sets of cardiac enzymes that ruled out myocardial infarction. He was seen in consultation by the coordinate measuring equipment operator and apparently has had a PCI with stent deployment about 3 years ago and a year ago has left heart catheterization, which did not require any intervention and he follows with Dr. Daniels at [facility] and decision was made to discharge him home to follow with his coordinate measuring equipment operator for an echocardiogram and ischemic workup as an outpatient. PHYSICAL EXAMINATION: GENERAL: When I saw him this afternoon, he was sitting at the edge of the bed comfortably, in no apparent respiratory distress. There was no pallor, jaundice, cyanosis or thyromegaly. No jugular venous distension. No limb edema. VITAL SIGNS: His heart rate was 96, blood pressure was 153/83, temperature was 97.7, respiratory rate was 18 and oxygen saturation was 98%. HEAD, EYES, EARS, NOSE AND THROAT: Showed normocephalic and atraumatic. NECK: Supple. HEART: Showed normal first and second heart sounds. No gallop or murmur. CHEST: Clear to auscultation. No crepitation or rhonchi. ABDOMEN: Distended, soft, nontender. NEUROLOGIC: He was grossly intact. LABORATORY DATA: This afternoon showed a serum sodium 135, potassium 4.3, chloride 98, bicarbonate 31, anion gap of 6, BUN 33, creatinine was 1.3, estimated GFR was 69 mL per minute. His glucose was 329 and calcium was 9. DISCHARGE MEDICATIONS: The patient was discharged home to continue on his alprazolam 1 mg 3 times a day, atorvastatin 80 mg at bedtime, Plavix 75 mg once a day, Flonase 2 sprays to each nostril once a day, Breo Ellipta 1 puff daily, furosemide 80 mg daily, gabapentin 800 mg twice a day, hydrocodone/APAP 5/325 one tablet twice a day. He is on NovoLog insulin 63 units subcutaneously 3 times a day before meals, detemir insulin 90 units subcutaneously twice a day, losartan potassium ____ mg once a day, olanzapine 15 mg at bedtime, omeprazole 20 mg once a day, potassium chloride 60 mEq daily and venlafaxine 75 mg daily. FINAL DISCHARGE DIAGNOSES: 1. Chest pain, atypical, most likely musculoskeletal, as acute myocardial infarction was ruled out. 2. Coronary artery disease, status post percutaneous coronary intervention with stent deployment of 3 years ago and left heart catheterization last year without intervention. 3. Acute on chronic, probably diastolic congestive heart failure. 4. Accelerated hypertension, improved. 5. Hyperlipidemia, on statin. 6. Type 2 diabetes, suboptimally controlled. 7. Acute on chronic kidney injury, improved. His creatinine was 1.4, went up to 1.7 and today is 1.3. 8. Anxiety and depression, bipolar. 9. Morbid obesity and obstructive sleep apnea and treated. The patient was advised to follow with his primary coordinate measuring equipment operator and primary care physician for outpatient echo and ischemic workup. MAN DUNN MD DR: LISANDRA/kemi JOB#: [id number] / [id number]
[2020-10-09] MEDS ORDERED: BUDESONIDE 0.5 MG/2 ML NEBU NEB SCH (20:00)
[2020-10-09] MEDS ORDERED: ATORVASTATIN CALCIUM 20 MG TABLET PO SCH (21:00)
[2020-10-09] MEDS ORDERED: OLANZapine 7.5 MG TABLET PO SCH (21:00)
--- NOTE | 2020-10-10 07:53 | EKG ---
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
--- NOTE | 2020-10-10 07:54 | EKG ---
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
[2020-10-10] MEDS ORDERED: PANTOPRAZOLE 40 MG TABLET. PO SCH (08:00)
[2020-10-10 16:12] LABS: THYROID STIM HORMONE (TSH) 2.622 uIU/mL (0.358-3.740)
== END 2020-10-09 13:40 | disposition home or self-care (01) ==
LOC: ER 17:20 → 1 SOUTH 18:48
PROVIDERS: ADMIT Hospitalist; ATTEND Hospitalist
DX: R07.89 Other chest pain (principal); I25.10 Atherosclerotic heart disease of native coronary artery without angina pectoris; I13.0 Hypertensive heart and chronic kidney disease with heart failure and stage 1 through stage 4 chronic kidney disease, or unspecified chronic kidney disease; I50.33 Acute on chronic diastolic (congestive) heart failure; N18.9 Chronic kidney disease, unspecified; J44.9 Chronic obstructive pulmonary disease, unspecified; N17.9 Acute kidney failure, unspecified; E11.65 Type 2 diabetes mellitus with hyperglycemia; G47.33 Obstructive sleep apnea (adult) (pediatric); F31.9 Bipolar disorder, unspecified; F41.9 Anxiety disorder, unspecified; K21.9 Gastro-esophageal reflux disease without esophagitis; E66.01 Morbid (severe) obesity due to excess calories; E78.00 Pure hypercholesterolemia, unspecified; E78.5 Hyperlipidemia, unspecified; Z85.048 Personal history of other malignant neoplasm of rectum, rectosigmoid junction, and anus; Z95.5 Presence of coronary angioplasty implant and graft; Z98.890 Other specified postprocedural states; Z87.891 Personal history of nicotine dependence; Z95.1 Presence of aortocoronary bypass graft; Z85.038 Personal history of other malignant neoplasm of large intestine; Z68.42 Body mass index [BMI] 45.0-49.9, adult; Z79.4 Long term (current) use of insulin
CPT/HCPCS: 36415; 71045; 80048; 80061; 80076; 82550; 82947; 83690; 83735; 83880; 84443; 84484; 85025; 93005; 94640; 96372; 96374; 96375; 99284; G0378; J1815; J2270; J7613; G0379

== ENCOUNTER 2021-09-07 12:48 | Observation (INO) | payer OTHER ==
[~2021-09-07] VITALS: Ht 177.8 cm; Wt 138.9 kg
[~2021-09-07 12:48] MED LIST changes: +ATORVASTATIN CA80 MG PO; +CLOP75TA PO; +FLUT16SP21 NS; +FLUT1AER IH; +FURO80TA3 PO; +HYDR-2155 PO; +LOSA50TA86 PO; -LURA80TA PO; +LURA80TA2 PO; +OLAN5TAB67 PO; +POTA20TA4 PO; -RISP2TAB PO; +RISP2TAB30 PO; +VENL75CA6 PO
--- NOTE | 2021-09-07 13:21 | EKG ---
[address] [address] Test Date: 2021-09-07 Test Time: 13:05:54 Pat Name: CHANCE BERNABE Department: Room: Gender: M Clinical Dietitian: VIC : 1965 Requested By: LARA FRITZ Order Number: [id number] Reading MD: Serge Maharaj Measurements Intervals [place] Rate: 98 P: 49 SC: 154 QRS: 24 QRSD: 98 T: 65 QT: 362 QTc: 464 Interpretive Statements SINUS RHYTHM LOW LIMB LEAD VOLTAGE Electronically Signed On 09-07-2021 13:45:23 MARBLE MECHANIC HELPER by Serge Maharaj
[2021-09-07 13:30] LABS: BASO # 0.1 x10^3/uL (0.0-0.2); BASO % 1 % (0-3); EOS # 0.1 x10^3/uL (0.0-0.7); EOS % 1 % (0-3); HEMATOCRIT 48.2 % (39.0-53.0); HEMOGLOBIN 15.4 g/dL (13.0-17.5); LYMPH % 11 % (24-48); MEAN CORPUSCULAR HEMOGLOBIN 26 pg (25-35); MEAN CORPUSCULAR HGB CONC 32 g/dL (31-37); MEAN CORPUSCULAR VOLUME 80 fL (79-100); MONO # 0.7 x10^3/uL (0.0-1.1); MONO % 7 % (0-9); NEUT # 7.6 x10^3uL (1.8-7.7); NEUT % 80 % (31-73); PLATELET COUNT 237 x10^3/uL (140-400); RED CELL DISTRIBUTION WIDTH 15.7 % (11.5-14.5); WHITE BLOOD COUNT 9.5 x10^3/uL (4.0-11.0)
--- NOTE | 2021-09-07 13:48 | RAD ---
EXAM: Chest, single view. HISTORY: Shortness of air. COMPARISON: 10/08/2020 FINDINGS: A frontal view of the chest is obtained. There is increased opacity overlying the lower tho rax likely due to asymmetric overlying soft tissues. There is no consolidation, pleural effusion or p neumothorax. The heart is normal in size. IMPRESSION: No acute pulmonary finding. Electronically signed by: Shirin Keenan MD (09/07/2021 1:45 PM) [facility]
[2021-09-07 13:49] LABS: CALCIUM 9.1 mg/dL (8.5-10.1); CREATININE 1.2 mg/dL (0.7-1.3); GFR 75.8; POTASSIUM 3.7 mmol/L (3.5-5.1)
[2021-09-07 14:01] LABS: ALBUMIN 3.8 g/dL (3.4-5.0); ALBUMIN/GLOBULIN RATIO 1.1 (1.0-1.7); TOTAL BILIRUBIN 0.4 mg/dL (0.2-1.0); TOTAL PROTEIN 7.2 g/dL (6.4-8.2)
[2021-09-07] MEDS ORDERED: FUROSEMIDE 40 MG/4 ML VIAL IVP ONE (14:30)
--- NOTE | 2021-09-07 14:45 | PHYS DOC ---
Past History Past Medical History: Anxiety, Asthma, COPD, Diabetes, GERD, High Cholesterol, Heart Disease, Hypertension (LARA FRITZ APRN) Past Surgical History: No Surgical History Additional Past Surgical Histo: 2 stents (LARA FRITZ APRN) Smoking: Cigar Alcohol Use: None Drug Use: None (LARA FRITZ APRN) General Adult EDM: Chief Complaint: MULTIPLE COMPLAINTS HPI: HPI: Patient is a 55-year-old male who presents to the emergency department today for congestion, productive cough with brown/green sputum, chest pain, shortness of breath that started 1 week ago. Patient reports that he is also gained 30 pounds over the last couple of weeks.Chest pain is located to bilateral ribs, it only occurs with coughing. Patient does have a history of hypertension, hyperlipidemia, PTSD, CAD, CHF, morbid obesity, GERD, VT, diabetes. Reports that his Levemir was recently changed to glargine. Patient does take 80 mg of Lasix twice a day. Upon ER arrival patient was noted to be hypoxic with an oxygen saturation of 87 to 88% on room air and was placed on 2 L via nasal cannula. Patient denies any fevers, nausea, vomiting. (LARA FRITZ APRN) Review of Systems: Review of Systems: Constitutional: negative unless reported in HPI Eyes: negative unless reported in HPI HENT: negative unless reported in HPI Respiratory: negative unless reported in HPI Cardiovascular: negative unless reported in HPI GI: negative unless reported in HPI : negative unless reported in HPI Musculoskeletal: negative unless reported in HPI Integument: negative unless reported in HPI Neurologic: negative unless reported in HPI Endocrine: negative unless reported in HPI Lymphatic: negative unless reported in HPI Psychiatric: negative unless reported in HPI (LARA FRITZ APRN) Allergies: Allergies: Allergies Coded Allergies Type Severity Reaction Last Updated Verified egg Allergy Intermediate 09/21/14 Yes (LARA FRITZ APRN) Physical Exam: PE: Constitutional: Well developed, well nourished, no acute distress, non-toxic appearance. [] HENT: Normocephalic, atraumatic, bilateral external ears normal, oropharynx moist, no oral exudates, nose normal. [] Eyes: PERRL, EOMI, conjunctiva normal, no discharge. [] Neck: Normal range of motion, no stridor Cardiovascular:Heart rate regular rhythm, no murmur [] Lungs & Thorax: Bilateral breath sounds clear , bilateral rib pain with cough [] Abdomen: Bowel sounds normal, soft, no tenderness, no masses, obese, no pulsatile masses. [] Skin: Warm, dry, no erythema, no rash. [] Back: Normal range of motion Extremities: No tenderness, no cyanosis, no clubbing, ROM intact, 2+ pitting edema noted to BLE Neurologic: Alert and oriented X 3, normal motor function, normal sensory function, no focal deficits noted. [] Psychologic: Affect normal, judgement normal, mood normal. [] (LARA FRITZ APRN) Current Patient Data: Labs: Laboratory Tests Test 09/07/21 13:10 White Blood Count 9.5 x10^3/uL (4.0-11.0) Red Blood Count 6.00 x10^6/uL (4.30-5.70) H Hemoglobin 15.4 g/dL (13.0-17.5) Hematocrit 48.2 % (39.0-53.0) Mean Corpuscular Volume 80 fL (79-100) Mean Corpuscular Hemoglobin 26 pg (25-35) Mean Corpuscular Hemoglobin Concent 32 g/dL (31-37) Red Cell Distribution Width 15.7 % (11.5-14.5) H Platelet Count 237 x10^3/uL (140-400) Neutrophils (%) (Auto) 80 % (31-73) H Lymphocytes (%) (Auto) 11 % (24-48) L Monocytes (%) (Auto) 7 % (0-9) Eosinophils (%) (Auto) 1 % (0-3) Basophils (%) (Auto) 1 % (0-3) Neutrophils # (Auto) 7.6 x10^3uL (1.8-7.7) Lymphocytes # (Auto) 1.0 x10^3/uL (1.0-4.8) Monocytes # (Auto) 0.7 x10^3/uL (0.0-1.1) Eosinophils # (Auto) 0.1 x10^3/uL (0.0-0.7) Basophils # (Auto) 0.1 x10^3/uL (0.0-0.2) Sodium Level 139 mmol/L (136-145) Potassium Level 3.7 mmol/L (3.5-5.1) Chloride Level 94 mmol/L (98-107) L Carbon Dioxide Level 39 mmol/L (21-32) H Anion Gap 6 (6-14) Blood Urea Nitrogen 29 mg/dL (8-26) H Creatinine 1.2 mg/dL (0.7-1.3) Estimated GFR (Cockcroft-Gault) 75.8 BUN/Creatinine Ratio 24 (6-20) H Glucose Level 168 mg/dL (70-99) H Calcium Level 9.1 mg/dL (8.5-10.1) Total Bilirubin 0.4 mg/dL (0.2-1.0) Aspartate Amino Transferase (AST) 42 U/L (15-37) H Alanine Aminotransferase (ALT) 43 U/L (16-63) Alkaline Phosphatase 63 U/L (46-116) Troponin I High Sensitivity 54 ng/L (4-75) RU-Oqx-V-Type Natriuretic Peptide 538 pg/mL (0-124) H Total Protein 7.2 g/dL (6.4-8.2) Albumin 3.8 g/dL (3.4-5.0) Albumin/Globulin Ratio 1.1 (1.0-1.7) Vital Signs: Vital Signs Date Time Temp Pulse Resp B/P (MAP) Pulse Ox O2 Delivery O2 Flow Rate FiO2 09/07/21 12:48 96 26 136/74 (94) 87 Room Air (LARA FRITZ ENGINEERING TEACHER) EKG: EKG: EKG performed by ER staff at 1305 shows sinus rhythm with a rate of 98, QTc of 464, no STEMI read by Dr. Segundo at 1310. [] (LARA FRITZ ENGINEERING TEACHER) Radiology/Procedures: Radiology/Procedures: []PROCEDURE: PORTABLE CHEST 1V EXAM: Chest, single view. HISTORY: Shortness of air. COMPARISON: 10/08/2020 FINDINGS: A frontal view of the chest is obtained. There is increased opacity overlying the lower thorax likely due to asymmetric overlying soft tissues. There is no consolidation, pleural effusion or pneumothorax. The heart is normal in size. IMPRESSION: No acute pulmonary finding. Electronically signed by: Shirin Purcell MD (09/07/2021 1:45 PM) [facility] DICTATED AND SIGNED BY: SHIRIN PURCELL MD DATE: 09/07/21 7140 CC: LARA FRITZ APRN; ZULMA KATZ MD ~MTH0 0 (LARA FRITZ APRN) Heart Score: C/O Chest Pain: Yes HEART Score for Chest Pain: HEART Score for Chest Pain Response (Comments) Value History Moderately Suspicious 1 ECG Normal 0 Age >45 - < 65 1 Risk Factors >3 Risk Factors or Hx CAD 2 Troponin < Normal Limit 0 Total 4 Risk Factors: Risk Factors: DM, Current or recent (<one month) smoker, HTN, HLP, family history of CAD, obesity. Risk Scores: Score 0 - 3: 2.5% MACE over next 6 weeks - Discharge Home Score 4 - 6: 20.3% MACE over next 6 weeks - Admit for Clinical Observation Score 7 - 10: 72.7% MACE over next 6 weeks - Early Invasive Strategies (LARA FRITZ APRN) Course & Med Decision Making: Course & Med Decision Making Pertinent Labs and Imaging studies reviewed. (See chart for details) [] Patient presents to the emergency department for cough, bilateral rib pain with cough, shortness of breath and increased weight gain over the last week. Upon ER arrival patient was noted to be hypoxic and requiring 2 L via nasal cannula. Work-up in the ER consisted of blood work including troponin and BNP, EKG and chest x-ray. EKG and chest x-ray unremarkable. CBC unremarkable. Patient CO2 was 39, troponin 54, BNP was 538. As patient is requiring supplemental oxygen, he will require admission as he does not have supplemental oxygen at home. Patient reports that he takes 80 mg of Lasix twice daily for his CHF at home. Patient will be treated with 80 mg of Lasix per Dr. Luz. I discussed patient's case with Dr. Luz agreed to move the patient under his services for CHF exacerbation. I discussed patient's findings with him as well as treatment plan he is agreeable. ER bridge orders placed at this time 1444. (LARA FRITZ APRN) Course & Med Decision Making I was the Attending physician on the above date of service of this patient. This patient was evaluated, examined, treated, and dispositioned from the emergency department by the mid-level practitioner. I reviewed case with COOKER CASING and personally saw patient repeating aspects of history and physical exam. I agreed to need for admission Electronically signed, Lucía Segundo DO (LUCÍA SEGUNDO DO) Kirit Disclaimer: Kirit Disclaimer: This electronic medical record was generated, in whole or in part, using a voice recognition dictation system. (LARA FRITZ APRN) Departure Departure: Impression: Primary Impression: Hypoxia Additional Impression: CHF exacerbation Qualified Codes: I50.9 - Heart failure, unspecified Disposition: 09 ADMITTED INPATIENT Admitting Physician: Roman Luz (LARA FRITZ APRN) Condition: STABLE Referrals: ZULMA KATZ MD (PCP) LARA FRITZ APRN Sep 07, 2021 14:45 LUCÍA SEGUNDO DO Sep 10, 2021 07:28
[2021-09-07] MEDS: MORPHINE SULFATE 2 MG/ML DISP.SYRIN. IVP PRN ×2 (15:27→21:10)
[2021-09-07] MEDS ORDERED: BENZONATATE 100 MG CAPSULE. PO ONE (15:30)
[2021-09-07 16:00] VITALS: BP 148/93
[2021-09-07] MEDS ORDERED: HYDROcodone/APAP 5/325MG 1 TAB TABLET PO PRN (17:00)
[2021-09-07] MEDS ORDERED: INSULIN DETEMIR 90 UNIT SQ SCH (17:00)
[2021-09-07] MEDS ORDERED: ALPRAZolam 0.5 MG TABLET PO PRN (17:30)
[2021-09-07] MEDS ORDERED: INSULIN GLARGINE SYRINGE. SQ SCH (17:45)
[2021-09-07] MEDS ORDERED: ALBUTEROL SULFATE 2.5 MG/3 ML NEBU. NEB PRN (17:45)
[2021-09-07 19:32] VITALS: BP 118/71
[2021-09-07] MEDS ORDERED: BUDESONIDE 0.5 MG/2 ML NEBU NEB SCH (20:00)
[2021-09-07] MEDS: FUROSEMIDE 40 MG/4 ML VIAL IVP SCH (20:53)
[2021-09-07] MEDS: OLANZapine 5 MG TABLET PO SCH ×2 (20:54→21:00)
[2021-09-07] MEDS: FLUTICASONE 50MCG/NASAL SPRAY 16GM BOTTLE. NS SCH (20:56)
[2021-09-07] MEDS ORDERED: ATORVASTATIN CALCIUM 20 MG TABLET PO SCH (21:00)
[2021-09-07 23:00] VITALS: BP 120/78
[2021-09-08 05:03] VITALS: BP 136/83
[2021-09-08 06:32] LABS: BASO % 1 % (0-3); EOS # 0.1 x10^3/uL (0.0-0.7); EOS % 1 % (0-3); HEMATOCRIT 49.3 % (39.0-53.0); HEMOGLOBIN 15.8 g/dL (13.0-17.5); LYMPH # 0.9 x10^3/uL (1.0-4.8); LYMPH % 11 % (24-48); MEAN CORPUSCULAR HEMOGLOBIN 26 pg (25-35); MEAN CORPUSCULAR HGB CONC 32 g/dL (31-37); MEAN CORPUSCULAR VOLUME 81 fL (79-100); MONO # 0.6 x10^3/uL (0.0-1.1); MONO % 8 % (0-9); NEUT # 6.1 x10^3uL (1.8-7.7); NEUT % 79 % (31-73); PLATELET COUNT 218 x10^3/uL (140-400); RED CELL DISTRIBUTION WIDTH 15.3 % (11.5-14.5); WHITE BLOOD COUNT 7.8 x10^3/uL (4.0-11.0)
[2021-09-08 06:42] LABS: ALBUMIN 3.6 g/dL (3.4-5.0); ALBUMIN/GLOBULIN RATIO 0.9 (1.0-1.7); CALCIUM 9.2 mg/dL (8.5-10.1); CREATININE 1.2 mg/dL (0.7-1.3); GFR 75.8; TOTAL BILIRUBIN 0.7 mg/dL (0.2-1.0); TOTAL PROTEIN 7.6 g/dL (6.4-8.2)
[2021-09-08] MEDS ORDERED: PANTOPRAZOLE 40 MG TABLET. PO SCH (07:30)
[2021-09-08] MEDS ORDERED: INSULIN LISPRO 300 UNITS/3 ML VIAL. SQ SCH (07:30)
[2021-09-08] MEDS ORDERED: INSULIN GLARGINE SYRINGE. SQ SCH (08:00)
[2021-09-08] MEDS: FUROSEMIDE 40 MG/4 ML VIAL IVP SCH (08:09)
[2021-09-08 08:11] VITALS: BP 136/83
[2021-09-08] MEDS: FLUTICASONE 50MCG/NASAL SPRAY 16GM BOTTLE. NS SCH (08:11)
[2021-09-08] MEDS ORDERED: MAGNESIUM SULFATE 1GM 100 ML IV ONE (08:30)
[2021-09-08] MEDS ORDERED: CLOPIDOGREL BISULFATE 75 MG TABLET PO SCH (09:00)
[2021-09-08] MEDS ORDERED: NON FORMULARY ITEM (Fluticasone/Vilanterol (Breo Ellipta 100-25 Mcg Inh) 1 PUFF) IH SCH (09:00)
[2021-09-08] MEDS ORDERED: LOSARTAN 50 MG TABLET. PO SCH (09:00)
[2021-09-08] MEDS ORDERED: POTASSIUM CHLORIDE 20 MEQ TABLET.ER. PO SCH (09:00)
--- NOTE | 2021-09-08 09:18 | HP ---
DATE OF SERVICE: 09/08/2021 ADMIT DATE: 09/07/2021 ATTENDING PHYSICIAN: Dr. Luz. CHIEF COMPLAINT: Shortness of breath. HISTORY OF PRESENT ILLNESS: The patient is a 55-year-old gentleman admitted to the ED with increasing shortness of breath. He has had orthopnea. He sleeps sitting up. He has dyspnea with minimal exertion. He has a longstanding history of congestive heart failure. His weight is up and his chest x-ray showed vascular congestion. BNP was also elevated. He was drinking a lot of fluids and has no insight into fluid management. He has no local physician here. He is admitted for further treatment. He was given extra Lasix and supplemental oxygen. Saturations were marginal at 89% on room air. PAST MEDICAL HISTORY: Significant for morbid obesity. There is a history of gastroesophageal reflux disease, hernia surgery, posttraumatic stress disorder, coronary artery disease, congestive heart failure with stents, essential hypertension and type 2 diabetes. PAST SURGICAL HISTORY: Includes 3 hernia repairs, two cardiac stents, Dr. Daniels is his mosaicist at [facility]. ALLERGIES: HE HAS ALLERGIES TO EGGS. No drug allergies. CURRENT MEDICATIONS: Include Xanax, Lipitor, Plavix, fluticasone, furosemide 80 b.i.d., Neurontin, hydrocodone, insulin, losartan, omeprazole, potassium, and Effexor. FAMILY HISTORY: Noncontributory. SOCIAL HISTORY: Nonsmoker, nondrinker. REVIEW OF SYSTEMS: Significant for sleep apnea. No chest pain, palpitations. No COVID exposure. All other systems reviewed and turned to be negative. PHYSICAL EXAMINATION: GENERAL: When I saw him, this is a pleasant, middle-aged gentleman. VITAL SIGNS: Initial vital signs showed a blood pressure of 136/80, pulse is 90 and regular. He is afebrile. Oxygen saturation 91% on 3 liters. HEENT: Head is without trauma. Pupils are reactive. Sclerae nonicteric. Oropharynx is clear. NECK: Supple, no bruits. LUNGS: Minimal crackles at bases. CARDIOVASCULAR: Showed regular heart tones. No gallop. ABDOMEN: Obese, protuberant. EXTREMITIES: Showed 2+ edema. NEUROLOGIC: Focally intact. PERTINENT LABORATORY STUDIES: The hemoglobin on admission was 15.4 grams, white count 6000. Chemistry panel: Sodium was 137, potassium 3.0 mEq. This will be followed up as an outpatient is asymptomatic. Creatinine is 1.2. Cardiac enzymes negative for ischemia. Chest x-ray showed vascular congestion and cardiomegaly. ASSESSMENT: 1. A 55-year-old gentleman with acute on chronic congestive heart failure, most likely systolic. 2. Volume overload due to increased intake. 3. Known coronary artery disease. 4. Hypertensive cardiomyopathy. 5. Morbid obesity. 6. Type 2 diabetes. 7. History of posttraumatic stress disorder. PLAN: 1. Admit to the inpatient unit. 2. Increase the Lasix. 3. Wean down supplemental oxygen. 4. Continue home meds. 5. Diabetes control. TWILA/ROSENDA DR: Triston TID: [id number]
--- NOTE | 2021-09-08 10:03 | DS ---
DATE OF DISCHARGE: 09/08/2021 ATTENDING PHYSICIAN: Dr. Luz. FINAL DISCHARGE DIAGNOSES: 1. Acute on chronic congestive heart failure. 2. Volume overload, improved. 3. Hypokalemia, replaced. This will be followed up as an outpatient. 4. Morbid obesity. 5. Type 2 diabetes. 6. Sleep apnea. HISTORY OF PRESENT ILLNESS: The patient is a 55-year-old gentleman with no local physician. He sees a cattle and wheat farmer at [facility]. He is admitted then with congestive heart failure. He has significant dyspnea with exertion, orthopnea and chest x-ray evidence of vascular congestion. Oxygen saturation marginal 89%, aggravated by his girth. PHYSICAL EXAMINATION: Please see my dictated note. PERTINENT LABORATORY AND X-RAY STUDIES: Hemoglobin was 15.4 grams, white count 9500. Potassium was 3.0 mEq. He is asymptomatic. This will be followed as an outpatient. Creatinine is 1.2 mg/dL. Nonfasting blood sugar 166. Chest x-ray as noted. COURSE IN THE HOSPITAL: The patient was admitted overnight. He was given IV Lasix with marked improvement. Daily weights and fluid restriction. Diabetes regimen continued. He was ready on preload and afterload reduction. By the next day, he was feeling better. His lungs were moving air and he did not require any supplemental oxygen. At this time, he is discharged home with the recommendations of limiting his fluid intake, getting a set of scales and getting daily weights. In addition, I have asked him to hold his venlafaxine, which is causing dry mouth and increased fluid ingestion. He will continue his Plavix 75 mg daily, losartan 100 mg p.o. daily, Neurontin. I have asked him to hold the Effexor. He should continue his olanzapine, alprazolam, potassium supplementation, Lasix 80 mg b.i.d., fluticasone, omeprazole, and insulin regimen unchanged and Lipitor. He will follow up with his regular physician and recheck electrolytes in 2 weeks' time. Strong encouragement to get a set of bathroom scales and weigh himself every day. We also had a long discussion regarding gastric bypass surgery. The patient was then discharged from our hospital in stable condition with explicit drug and followup care. TWILA/YOLANDA DR: TWILA/kemi TID: [id number]
== END 2021-09-08 09:27 | disposition home or self-care (01) ==
LOC: ER 12:48 → ER HOLD 14:25 → INTOOBSV 14:25 → 1 SOUTH 14:57
PROVIDERS: ADMIT Hospitalist; ATTEND Hospitalist
DX: E87.70 Fluid overload, unspecified (principal); Z20.822 Contact with and (suspected) exposure to COVID-19; I11.0 Hypertensive heart disease with heart failure; I50.9 Heart failure, unspecified; I25.10 Atherosclerotic heart disease of native coronary artery without angina pectoris; I43 Cardiomyopathy in diseases classified elsewhere; I25.2 Old myocardial infarction; K21.9 Gastro-esophageal reflux disease without esophagitis; J44.9 Chronic obstructive pulmonary disease, unspecified; E11.9 Type 2 diabetes mellitus without complications; E66.01 Morbid (severe) obesity due to excess calories; E78.00 Pure hypercholesterolemia, unspecified; E78.5 Hyperlipidemia, unspecified; E87.6 Hypokalemia; G47.30 Sleep apnea, unspecified; F43.10 Post-traumatic stress disorder, unspecified; F17.210 Nicotine dependence, cigarettes, uncomplicated; R09.02 Hypoxemia; Z79.02 Long term (current) use of antithrombotics/antiplatelets; Z95.5 Presence of coronary angioplasty implant and graft; Z95.1 Presence of aortocoronary bypass graft; Z79.4 Long term (current) use of insulin; Z79.899 Other long term (current) drug therapy; Z98.890 Other specified postprocedural states; Z68.41 Body mass index [BMI] 40.0-44.9, adult
CPT/HCPCS: 36415; 71045; 80053; 82947; 83880; 84484; 85025; 87426; 93005; 94640; 96372; 96374; 96375; 96376; 99285; G0378; J1815; J1940; J2270; U0003; G0379